=== PATIENT | female | born 1990 | race Caucasian/White ===

== ENCOUNTER 2019-06-18 20:37 | Emergency (ER) | payer OTHER ==
[~2019-06-18] VITALS: Ht 162.6 cm; Wt 63.5 kg
== END 2019-06-18 22:10 | disposition home or self-care (01) ==
LOC: ED 20:37
DX: I83.892 Varicose veins of left lower extremity with other complications (principal); F17.200 Nicotine dependence, unspecified, uncomplicated
CPT/HCPCS: 99283

== ENCOUNTER 2020-04-28 08:24 | Emergency (ER) | payer OTHER ==
[~2020-04-28] VITALS: Ht 162.6 cm; Wt 63.5 kg
[2020-04-28] MEDS ORDERED: MUPIROCIN22 GM TOP (09:17)
[2020-04-28] MEDS ORDERED: DOXYCYCLINE HY100 MG PO (09:17)
[2020-04-28] MEDS ORDERED: VISTARIL50 MG PO (09:17)
== END 2020-04-28 08:55 | disposition home or self-care (01) ==
LOC: ED 08:24
DX: A49.02 Methicillin resistant Staphylococcus aureus infection, unspecified site (principal); F17.200 Nicotine dependence, unspecified, uncomplicated
CPT/HCPCS: 99283

== ENCOUNTER 2021-04-22 19:15 | Emergency (ER) | payer OTHER ==
[~2021-04-22] VITALS: Ht 162.6 cm; Wt 59.0 kg
[~2021-04-22 19:15] MED LIST: DOXYCYCLINE HY100 MG PO; MUPIROCIN22 GM TOP; VISTARIL50 MG PO
--- OUTSIDE RECORDS SUMMARY | 2021-04-22 19:26 | XMS ---
PreManage Notification: BONI LOPEZ Security Manager Health Events 1 event(s) in the past 18 months Most recent security events: Elopement at [facility] 04/20/2021 15:10 Details: PATIENT LWBS. CRITERIA MET - [facility] - 2 Visits in 30 Days CARE PROVIDERS There are no care providers on record at this time. Janak has no Care Guidelines for this patient. [facility] MO[facility] NOTE: Visits indicate total known visits. ED/C VISIT TRACKING (12 MO.) 04/22/2021 19:16 [facility] TYPE: Emergency COMPLAINT: - FOREIGN OBJECT 04/20/2021 15:10 [facility] TYPE: Emergency COMPLAINT: - UNABLE TO REMOVE TAMPON 04/28/2020 08:24 [facility] TYPE: Emergency COMPLAINT: - SKIN PROBLEM, BODY CHILLS DIAGNOSES: - Disorder of the skin and subcutaneous tissue, unspecified - Methicillin resistant Staphylococcus aureus infection, unspecified site - Infective dermatitis - Nicotine dependence, unspecified, uncomplicated INPATIENT VISIT TRACKING (12 MO.) No inpatient visits to display in this time frame [email or web address]
== END 2021-04-22 20:45 | disposition home or self-care (01) ==
LOC: ED 19:15
DX: T19.2XXA Foreign body in vulva and vagina, initial encounter (principal); E78.00 Pure hypercholesterolemia, unspecified; F17.200 Nicotine dependence, unspecified, uncomplicated
CPT/HCPCS: 99283

== ENCOUNTER 2022-03-21 15:23 | Emergency (ER) | payer OTHER ==
[~2022-03-21] VITALS: Ht 162.6 cm; Wt 70.3 kg
== END 2022-03-21 21:34 | disposition home or self-care (01) ==
LOC: ED 15:23
DX: T19.2XXA Foreign body in vulva and vagina, initial encounter (principal); E78.00 Pure hypercholesterolemia, unspecified; F17.200 Nicotine dependence, unspecified, uncomplicated
CPT/HCPCS: 87491; 99283

== ENCOUNTER 2023-07-05 19:45 | Emergency (ER) | payer OTHER ==
[~2023-07-05] VITALS: Ht 162.6 cm; Wt 63.5 kg
[2023-07-05 20:21] LABS: HEMOGLOBIN 14.2 g/dL (12.0-18.0); RBC 4.57 M/ul (4.3-5.7)
[2023-07-05 20:24] LABS: BASOPHILS 0.6 % (0-2); EOSINOPHILS 0.4 % (0-6); HEMATOCRIT 42.8 % (35.0-50.0); LYMPHOCYTES 16.7 % (24-44); MCH 31.1 (27-36); MCHC 33.2 g/dl (30-36); MCV 93.8 fl (81-99); MONOCYTES 6.8 % (0-12); NEUTROPHILS 75.5 % (39-80); PLATELET COUNT 403 K/uL (140-440); RDW 12.9 (10.5-15.0)
[2023-07-05 20:39] LABS: ALBUMIN 3.7 g/dL (3.4-5.0); ALCOHOL, MEDICAL <3 ng/dL (<3); ALKALINE PHOSPHATASE 88 U/L (46-116); ALT (SGPT) 21 U/L (14-59); ANION GAP 13.7 (7-21); AST (SGOT) 20 U/L (15-37); BILIRUBIN, TOTAL 0.3 ng/dL (0.2-1.0); BUN/CREATININE RATIO 19.04 (6.0-28.6); CALCIUM 9.4 mg/dL (8.5-10.1); CARBON DIOXIDE 26 mmol/L (21-32); CHLORIDE 103 mmol/L (98-107); CREATININE, SERUM 0.84 mg/dL (0.55-1.02); GLOMERULAR FILTRATION RATE,EST 93 mL/min (>60); POTASSIUM 3.7 mmol/L (3.5-5.1); PROTEIN, TOTAL 7.4 g/dL (6.4-8.2); UREA NITROGEN 16 mg/dL (7-18)
[2023-07-05 22:08] VITALS: BP 129/85
== END 2023-07-05 22:08 | disposition home or self-care (01) ==
LOC: ED 19:45
PROVIDERS: Emergency Medicine
DX: S00.03XA Contusion of scalp, initial encounter (principal); S30.1XXA Contusion of abdominal wall, initial encounter; S30.0XXA Contusion of lower back and pelvis, initial encounter; F17.200 Nicotine dependence, unspecified, uncomplicated; Y04.2XXA Assault by strike against or bumped into by another person, initial encounter
CPT/HCPCS: 36415; 70450; 71046; 72125; 74177; 80053; 83690; 84702; 85025; 99284-25; G0480; J1885; Q9967

== ENCOUNTER 2024-01-29 16:46 | Emergency (ER) | payer OTHER ==
[~2024-01-29] VITALS: Ht 162.6 cm; Wt 63.6 kg
[2024-01-29 17:33] VITALS: BP 119/83
== END 2024-01-29 17:26 | disposition left against medical advice (07) ==
LOC: ED 16:46
DX: T40.411A Poisoning by fentanyl or fentanyl analogs, accidental (unintentional), initial encounter (principal); E78.00 Pure hypercholesterolemia, unspecified; F17.200 Nicotine dependence, unspecified, uncomplicated
CPT/HCPCS: 80053; 82803; 83735; 84703; 85025; 99284

== ENCOUNTER 2024-03-19 08:12 | Emergency (ER) | payer OTHER ==
[~2024-03-19] VITALS: Ht 162.6 cm; Wt 65.0 kg
[2024-03-19] MEDS ORDERED: DOXYCYCLINE HY100 MG PO (08:46)
[2024-03-19 08:58] VITALS: BP 117/67
== END 2024-03-19 08:59 | disposition home or self-care (01) ==
LOC: ED 08:12
DX: L03.113 Cellulitis of right upper limb (principal); F17.200 Nicotine dependence, unspecified, uncomplicated
CPT/HCPCS: 99282